=== PATIENT | male | born 1985 | race Two or more races ===

== ENCOUNTER 2017-06-07 00:59 | Emergency (ER) | payer SELFPAY ==
[~2017-06-07] VITALS: Ht 167.6 cm; Wt 65.8 kg
[2017-06-07 03:17] LABS: BARBITURATES NEG (NEG); BENZODIAZEPINES NEG (NEG); CANNABINOIDS POS (NEG); COCAINE NEG (NEG); METHADONE NEG (NEG); OPIATES NEG (NEG); PHENCYCLIDINE NEG (NEG)
[2017-06-07 03:40] VITALS: BP 122/67
--- NOTE | 2017-06-07 03:48 | PHYS DOC ---
Past Medical History Past Medical History: No Pertinent History Past Surgical History: No Surgical History Alcohol Use: Occasionally Drug Use: Marijuana Social History Narrative: pt states he has never smoked marijauan before tonight Adult General Chief Complaint Chief Complaint: ACCIDENTAL INGESTION HPI HPI Patient is a 31 year old male who presents with concerns that he may have ingested an unknown drug. Patient states he was giving a cigarette to smoke that make him feel weird afterwards. He is not aware that he ingested anything or drank anything unusual. Patient has no other specific complaints. Examining to be conducted in the patient's language. Review of Systems Review of Systems Constitutional: Denies fever or chills [] Eyes: Denies change in visual acuity, redness, or eye pain [] HENT: Denies nasal congestion or sore throat [] Respiratory: Denies cough or shortness of breath [] Cardiovascular: No chest pain GI: Denies abdominal pain, nausea, vomiting, bloody stools or diarrhea [] : Denies dysuria or hematuria [] Musculoskeletal: Denies back pain or joint pain [] Integument: Denies rash or skin lesions [] Neurologic: Denies headache, focal weakness or sensory changes [] Allergies Allergies Allergies Coded Allergies Type Severity Reaction Last Updated Verified No Known Drug Allergies 06/07/17 No Physical Exam Physical Exam Constitutional: Well developed, well nourished, no acute distress, non-toxic appearance. [] HENT: Normocephalic, atraumatic, oropharynx moist, no oral exudates, nose normal. [] Eyes: PERRLA, EOMI, conjunctiva normal, no discharge. [] Neck: Normal range of motion, no tenderness, supple, no stridor. [] Cardiovascular:Heart rate regular rhythm, no murmur, normal perfusion, no vascular insufficiency Lungs & Thorax: Bilateral breath sounds clear to auscultation, no tachypnea Abdomen: Bowel sounds normal, soft, no tenderness, no masses, no pulsatile masses. [] Skin: Warm, dry, no erythema, no rash. [] Back: No tenderness, no CVA tenderness. [] Extremities: No tenderness, no cyanosis, ROM intact, no edema. [] Neurologic: Alert and oriented X 3, normal motor function, no focal deficits noted. Answering questions properly, following commands Psychologic: Affect normal, judgement normal, mood normal. [] Current Patient Data Vital Signs Vital Signs Date Time Temp Pulse Resp B/P (MAP) Pulse Ox O2 Delivery O2 Flow Rate FiO2 06/07/17 01:12 98.6 95 14 140/74 (96) 100 Room Air 98.6 Lab Values Laboratory Tests Test 06/07/17 02:50 Urine Opiates Screen Neg (NEG) Urine Methadone Screen Neg (NEG) Urine Barbiturates Neg (NEG) Urine Phencyclidine Screen Neg (NEG) Urine Amphetamine/Methamphetamine Neg (NEG) Urine Benzodiazepines Screen Neg (NEG) Urine Cocaine Screen Neg (NEG) Urine Cannabinoids Screen Pos (NEG) Urine Ethyl Alcohol Neg (NEG) EKG EKG 75, sinus rhythm, no STEMI, EP interpretation at 200 [] Radiology/Procedures Radiology/Procedures [] Course & Med Decision Making Course & Med Decision Making Pertinent Labs and Imaging studies reviewed. (See chart for details) 0346 I check on the patient, he is found to be in no distress, vital signs are unremarkable, patient states he feels back to his baseline. Patient states he wishes to go home at this time. I expect the patient the limitations of the drug screen test that we did, he understands. Strict return precautions have been given to the patient and the family member in the room. [] Dragon Disclaimer Dragon Disclaimer This electronic medical record was generated, in whole or in part, using a voice recognition dictation system. Departure Departure Impression: Primary Impression: Adverse drug experience Disposition: 01 HOME, SELF-CARE Condition: IMPROVED Referrals: NON,STAFF (PCP) Patient Instructions: Drug Abuse, FAQs, Medical Screening Exam Marie TRACY MD Jun 07, 2017 03:48
--- NOTE | 2017-06-07 09:22 | EKG ---
[facility] [address] [place] [address] Test Date: 2017-06-07 Test Time: 01:51:34 Pat Name: JAMA AMIN Department: Room: Gender: Marine Mechanic: : 1985 Requested By: Marie TRACY Order Number: [id number] Reading MD: Indra Barbour Measurements Intervals [place] Rate: 75 P: 55 SC: 158 QRS: 65 QRSD: 92 T: 39 QT: 386 QTc: 434 Interpretive Statements SINUS RHYTHM Electronically Signed On 06-07-2017 15:10:50 CDT by Indra Barbour
== END 2017-06-07 03:50 | disposition home or self-care (01) ==
LOC: ER 00:59
DX: T78.8XXA Other adverse effects, not elsewhere classified, initial encounter (principal); F17.210 Nicotine dependence, cigarettes, uncomplicated; F12.10 Cannabis abuse, uncomplicated; X58.XXXA Exposure to other specified factors, initial encounter
CPT/HCPCS: 80307; 93005; 99285; G0479